=== PATIENT | female | born 2000 | race Hispanic/Latino ===

== ENCOUNTER 2023-08-23 00:31 | Observation (INO) | payer MEDICAID ==
[~2023-08-23] VITALS: Ht 162.6 cm; Wt 90.7 kg
[2023-08-23 00:33] VITALS: BP 138/73; PULSE 101; RESP 20
[2023-08-23 01:32] LABS: APPEARANCE,URINE CLOUDY (CLEAR); BILIRUBIN,URINE NEGATIVE (NEGATIVE); COLOR,URINE COLORLESS (YELLOW); GLUCOSE, URINE (UA) 50 mg/dL (NEGATIVE); KETONES,URINE NEGATIVE (NEGATIVE); LEUKOCYTE ESTERASE ,URINE NEGATIVE Leu/uL (NEGATIVE); NITRATE,URINE NEGATIVE (NEGATIVE); PROTEIN,URINE NEGATIVE (NEGATIVE); UROBILINOGEN,URINE 0.2 mg/dL (0.2-1.0)
[2023-08-23 01:34] LABS: ADD UA MICROSCOPIC YES
[2023-08-23 01:35] LABS: BACTERIA,URINE RARE /HPF (None Seen); MUCUS,URINE RARE LPF (None Seen); RBC,URINE 0-1 /HPF (0-1)
[2023-08-23 01:41] LABS: AMPHET/METH SCREEN,URINE NEGATIVE (NEGATIVE); BARBITURATE SCREEN, URINE NEGATIVE (NEGATIVE); BENZODIAZEPINES SCREEN,URINE NEGATIVE (NEGATIVE); CANNABINOID SCREEN,URINE NEGATIVE (NEGATIVE); COCAINE SCREEN,URINE NEGATIVE (NEGATIVE); OPIATE SCREEN,URINE NEGATIVE (NEGATIVE); PHENCYCLIDINE SCREEN,URINE NEGATIVE (NEGATIVE)
[2023-08-23] MEDS ORDERED: TERBUTALINE SULFATE VIAL 1MG/ML SQ ONE (02:16)
[2023-08-23] MEDS ORDERED: LACTATED RINGERS 1000ML 1,000 ML IV SCH (02:30)
[2023-08-23] MEDS ORDERED: TERBUTALINE SULFATE VIAL 1MG/ML SQ SCH (02:30)
== END 2023-08-23 03:45 | disposition home or self-care (01) ==
LOC: EDH 00:31 → LDH 00:32
PROVIDERS: ADMIT Obstetrics & Gynecology; ATTEND Obstetrics & Gynecology
DX: O62.9 Abnormality of forces of labor, unspecified (principal); Z3A.29 29 weeks gestation of pregnancy
CPT/HCPCS: 96372; 96360; 80305; 81001; G0378 ×3; J3105; J7120

== ENCOUNTER 2023-11-25 01:42 | Emergency (ER) | payer MEDICAID ==
[~2023-11-25] VITALS: Ht 157.5 cm; Wt 76.7 kg
[2023-11-25] MEDS ORDERED: SOLU-MEDROL 125MG VIAL IVP ONE (02:30)
[2023-11-25] MEDS ORDERED: FAMOTIDINE 20MG VIAL IV ONE (02:30)
[2023-11-25] MEDS ORDERED: EPINEPHRINE PF 1MG (1:1,000) 1 MG/ML AMP IM ONE (02:30)
[2023-11-25] MEDS ORDERED: DiphenhydrAMINE HCL 50 MG/ML VIAL IV ONE (02:30)
[2023-11-25 02:34] VITALS: BP 112/80; PULSE 80; RESP 18; O2SAT 98
[2023-11-25] MEDS ORDERED: DIPH50 PO ×2 (03:20)
[2023-11-25] MEDS ORDERED: PRED20TA3 PO (03:20)
[2023-11-25] MEDS ORDERED: FAMO-136 PO (03:20)
== END 2023-11-25 04:42 | disposition home or self-care (01) ==
LOC: EDH 01:42
DX: T78.40XA Allergy, unspecified, initial encounter (principal)
CPT/HCPCS: 99284; 96374; 96375; 96372; J1200; J2930; J0171; S0028; J3490